=== PATIENT | male | born 1960 | race Caucasian/White ===

== ENCOUNTER 2017-01-20 07:58 | Emergency (ER) | payer MEDICAID ==
[~2017-01-20] VITALS: Ht 175.3 cm; Wt 93.9 kg
[2017-01-20 08:03] VITALS: BP_SYST 136
== END 2017-01-20 08:42 | disposition home or self-care (01) ==
LOC: SED 07:58
DX: H60.92 Unspecified otitis externa, left ear (principal)
CPT/HCPCS: 99283